=== PATIENT | male | born 1990 | race Caucasian/White ===

== ENCOUNTER 2023-06-13 20:27 | Emergency (ER) | payer MEDICAID ==
[~2023-06-13] VITALS: Ht 175.3 cm; Wt 97.7 kg
[2023-06-13 20:42] VITALS: BP 134/75; PULSE 108; RESP 16; TEMP 100.5; O2SAT 96
[2023-06-13] MEDS: acetaminophen 325mg tablet PO ONE (20:55)
[2023-06-13] MEDS ORDERED: AMOX-117 PO (21:46)
[2023-06-13] MEDS ORDERED: LIDO15SO3 PO (21:46)
== END 2023-06-13 22:10 | disposition home or self-care (01) ==
LOC: ER 20:28
DX: J03.90 Acute tonsillitis, unspecified (principal); Z20.822 Contact with and (suspected) exposure to COVID-19; J02.9 Acute pharyngitis, unspecified
CPT/HCPCS: 36415; 71045; 87502; 87503; 87811; 99284

== ENCOUNTER 2023-08-03 15:34 | Emergency (ER) | payer MEDICAID ==
[~2023-08-03] VITALS: Ht 175.3 cm; Wt 87.6 kg
[~2023-08-03 15:34] MED LIST: LIDO15SO9 PO
[2023-08-03 15:39] VITALS: TEMP 98.4
[2023-08-03 16:11] LABS: BILIRUBIN,URINE NEGATIVE (Neg); CLARITY,URINE CLEAR (Clear); COLOR,URINE YELLOW (Yellow); GLUCOSE, URINE NEGATIVE (Neg); KETONES,URINE NEGATIVE (Neg); LEUKOCYTE ESTERASE ,URINE NEGATIVE (Neg); NITRITES, URINE NEGATIVE (Neg); OCCULT BLOOD,URINE NEGATIVE (Neg); PH,URINE 5.5 (4.8-8.0); PROTEIN,URINE NEGATIVE (Neg); UROBILINOGEN,URINE 0.2 E.U/dL (0.2-1.0)
[2023-08-03 16:25] LABS: UA COLLECTION TYPE CLN CATCH MIDSTREAM
[2023-08-03 16:56] LABS: BASOPHILS % (AUTO) 0.5 % (0-1); EOSINOPHILS # (AUTO) 0.1 X10'3 (0-0.9); EOSINOPHILS % (AUTO) 1.3 % (0-6); HEMATOCRIT 43.7 % (42.0-52.0); HEMOGLOBIN 14.9 g/dl (14.0-17.9); LYMPHOCYTES # (AUTO) 2.4 X10'3 (1.1-4.8); LYMPHOCYTES % (AUTO) 32.4 % (21-51); MEAN CORPUSCULAR HGB CONC 34.2 g/dL (33.0-36.5); MEAN CORPUSCULAR VOLUME 84.8 FL (78-98); MEAN PLATELET VOLUME 9.3 FL (7.4-10.4); MONOCYTES # (AUTO) 0.6 X10'3 (0-0.9); MONOCYTES % (AUTO) 7.8 % (2-12); NEUTROPHILS # (AUTO) 4.3 X10'3 (1.8-7.7); PLATELET COUNT 206 X10'3 (140-440); RED BLOOD COUNT 5.15 X10'6 (4.70-6.10); RED CELL DISTRIBUTION WIDTH 14.2 % (11.5-14.5); WHITE BLOOD COUNT 7.4 X10'3 (4.5-11.0)
[2023-08-03 17:06] LABS: ALBUMIN 3.6 G/DL (3.4-5.0); ALBUMIN/GLOBULIN RATIO 0.9 (1.1-1.5); ALKALINE PHOSPHATASE 101 IU/L (46-116); ANION GAP 6 (8-16); ASPARTATE AMINO TRANSFERASE 18 U/L (10-37); BILIRUBIN,TOTAL 0.4 MG/DL (0.1-1.0); BLOOD UREA NITROGEN 12 MG/DL (7-18); BUN/CREATININE RATIO 12.4 (10.0-20.0); CALCIUM 8.7 MG/DL (8.5-10.1); CHLORIDE 103 MMOL/L (99-107); CREATININE 0.97 MG/DL (0.60-1.10); GLUCOSE 91 MG/DL (70-104); LIPASE 69 U/L (16-77); POTASSIUM 3.9 MMOL/L (3.5-5.1); SODIUM 137 MMOL/L (135-145); TOTAL PROTEIN 7.4 G/DL (6.4-8.2); eCRCL 109 ML/MIN; eGFR 90 ML/MIN
[2023-08-03 17:07] LABS: ALANINE AMINOTRANSFERASE 37 U/L (12-78)
[2023-08-03] MEDS: ondansetron/PF 4mg/2ml inj IV ONE (18:44)
[2023-08-03] MEDS: normal saline 1000ML IV soln IVB ONE (18:44)
[2023-08-03] MEDS: ketorolac tromethamine 15mg/ml inj. IV ONE (18:45)
[2023-08-03 19:38] VITALS: BP 110/63; PULSE 79; RESP 16; O2SAT 100
[2023-08-03] MEDS ORDERED: ACET325T55 PO (19:46)
[2023-08-03] MEDS ORDERED: ONDA8TAB13 PO (19:46)
[2023-08-03] MEDS ORDERED: OXYC-658 PO (19:46)
== END 2023-08-03 20:02 | disposition home or self-care (01) ==
LOC: ER 15:34
DX: K52.9 Noninfective gastroenteritis and colitis, unspecified (principal); R11.0 Nausea; F15.90 Other stimulant use, unspecified, uncomplicated; F12.90 Cannabis use, unspecified, uncomplicated; Z56.0 Unemployment, unspecified; Z79.2 Long term (current) use of antibiotics; Z79.899 Other long term (current) drug therapy; Z88.8 Allergy status to other drugs, medicaments and biological substances
CPT/HCPCS: 36415; 74176; 80053; 81003; 83690; 85025; 96361; 96374; 96375; 99285; J1885; J2405; J7030

== ENCOUNTER 2023-09-25 10:50 | Emergency (ER) | payer MEDICAID ==
[~2023-09-25] VITALS: Ht 172.7 cm; Wt 89.5 kg
[~2023-09-25 10:50] MED LIST changes: +ONDA8TAB13 PO
[2023-09-25] MEDS ORDERED: butalbital/acetaminophen/caffeine (Fioricet) tablet PO ONE ×2 (12:40→13:10)
[2023-09-25] MEDS: ketorolac tromethamine 15mg/ml inj. IV ONE (13:02)
[2023-09-25] MEDS: ketorolac trometh. 30mg/ml inj. IV ONE (13:03)
[2023-09-25] MEDS ORDERED: BUTA-245 PO (13:28)
[2023-09-25 13:33] VITALS: BP 120/60; PULSE 80; RESP 16; TEMP 98.5; O2SAT 98
== END 2023-09-25 13:34 | disposition home or self-care (01) ==
LOC: ER 10:50
DX: R51.9 Headache, unspecified (principal); F12.90 Cannabis use, unspecified, uncomplicated; F15.90 Other stimulant use, unspecified, uncomplicated; Z79.899 Other long term (current) drug therapy
CPT/HCPCS: 70450; 96374; 99285; J1885

== ENCOUNTER 2024-01-20 16:17 | Emergency (ER) | payer MEDICAID ==
[~2024-01-20] VITALS: Ht 175.3 cm; Wt 89.4 kg
[~2024-01-20 16:17] MED LIST changes: +BUTA-245 PO; +ONDA-245 PO; -ONDA8TAB13 PO
[2024-01-20 16:18] VITALS: BP 122/71; PULSE 94; RESP 16; O2SAT 98
[2024-01-20 17:31] LABS: BASOPHILS % (AUTO) 0.5 % (0-1); EOSINOPHILS % (AUTO) 0.6 % (0-6); HEMATOCRIT 42.4 % (42.0-52.0); HEMOGLOBIN 14.3 g/dl (14.0-17.9); LYMPHOCYTES # (AUTO) 2.1 X10'3 (1.1-4.8); LYMPHOCYTES % (AUTO) 28.1 % (21-51); MEAN CORPUSCULAR HEMOGLOBIN 29.4 PG (27.0-31.0); MEAN CORPUSCULAR HGB CONC 33.6 g/dL (33.0-36.5); MEAN CORPUSCULAR VOLUME 87.5 FL (78-98); MEAN PLATELET VOLUME 9.1 FL (7.4-10.4); MONOCYTES # (AUTO) 0.6 X10'3 (0-0.9); MONOCYTES % (AUTO) 7.9 % (2-12); NEUTROPHILS # (AUTO) 4.6 X10'3 (1.8-7.7); NEUTROPHILS % (AUTO) 62.9 % (42-75); PLATELET COUNT 174 X10'3 (140-440); RED BLOOD COUNT 4.85 X10'6 (4.70-6.10); WHITE BLOOD COUNT 7.3 X10'3 (4.5-11.0)
[2024-01-20 17:49] LABS: ALANINE AMINOTRANSFERASE 20 U/L (12-78); ALBUMIN 3.4 G/DL (3.4-5.0); ALKALINE PHOSPHATASE 81 IU/L (46-116); ANION GAP 9 (8-16); ASPARTATE AMINO TRANSFERASE 15 U/L (10-37); BILIRUBIN,TOTAL 0.6 MG/DL (0.1-1.0); BLOOD UREA NITROGEN 22 MG/DL (7-18); BUN/CREATININE RATIO 19.6 (10.0-20.0); CALCIUM 8.7 MG/DL (8.5-10.1); CHLORIDE 104 MMOL/L (99-107); CREATININE 1.12 MG/DL (0.60-1.10); GLUCOSE 106 MG/DL (70-104); POTASSIUM 3.2 MMOL/L (3.5-5.1); SODIUM 139 MMOL/L (135-145); TOTAL CARBON DIOXIDE 26.1 MMOL/L (24-32); TOTAL PROTEIN 6.9 G/DL (6.4-8.2); eCRCL 95 ML/MIN; eGFR 76 ML/MIN
[2024-01-20] MEDS ORDERED: iohexol 300mg/ml 100ml inj. ONE (17:53)
[2024-01-20] MEDS ORDERED: CEPH-585 PO (18:41)
[2024-01-20 19:06] VITALS: TEMP 98.5
== END 2024-01-20 19:07 | disposition home or self-care (01) ==
LOC: ER 16:17
DX: L03.818 Cellulitis of other sites (principal); F12.90 Cannabis use, unspecified, uncomplicated; F15.90 Other stimulant use, unspecified, uncomplicated; Z79.2 Long term (current) use of antibiotics; Z79.899 Other long term (current) drug therapy; Z56.0 Unemployment, unspecified
CPT/HCPCS: 36415; 74177; 80053; 85025; 99285; Q9967

== ENCOUNTER 2024-01-24 17:43 | Emergency (ER) | payer MEDICAID ==
[~2024-01-24] VITALS: Ht 175.3 cm; Wt 89.5 kg
[~2024-01-24 17:43] MED LIST changes: +CEPH-585 PO
[2024-01-24 17:54] VITALS: BP 121/69; PULSE 92; RESP 16; O2SAT 97
[2024-01-24] MEDS ORDERED: SULF1TAB45 PO (18:28)
[2024-01-24 18:30] VITALS: TEMP 97.8
[2024-01-24] MEDS ORDERED: sulfamethoxazole/trimethoprim DS (800/160mg) tablet PO ONE (18:30)
== END 2024-01-24 18:35 | disposition home or self-care (01) ==
LOC: ER 17:43
DX: L02.414 Cutaneous abscess of left upper limb (principal); F12.90 Cannabis use, unspecified, uncomplicated; F15.90 Other stimulant use, unspecified, uncomplicated; Z79.2 Long term (current) use of antibiotics; Z79.899 Other long term (current) drug therapy; Z87.891 Personal history of nicotine dependence
CPT/HCPCS: 99283